=== PATIENT | female | born 1990 | race Caucasian/White ===

== ENCOUNTER 2016-12-18 23:30 | Observation (INO) | payer OTHER ==
[~2016-12-18] VITALS: Ht 167.6 cm; Wt 81.6 kg
[2016-12-19] VITALS: BP 110/53
[2016-12-19] MEDS ORDERED: LIDOCAINE 1% 500 MG/50 ML VIAL INJ SCH (00:45)
[2016-12-19] MEDS ORDERED: NALBUPHINE 10 MG/ML AMP IVP PRN (00:45)
[2016-12-19] MEDS ORDERED: cefTRIAXone 1,000 MG in LIDOCAINE 1% ***ER ONLY *** 2.1 ML IM SCH (00:45)
[2016-12-19] MEDS ORDERED: NALBUPHINE 10 MG/ML AMP IM PRN (00:55)
[2016-12-19] MEDS ORDERED: FERR-252 PO (05:11)
[2016-12-19] MEDS ORDERED: PREN-546 PO (05:11)
[2016-12-19] MEDS ORDERED: CALC500T2 PO (05:11)
== END 2016-12-19 01:10 | disposition left against medical advice (07) ==
LOC: MLD 23:30
PROVIDERS: ADMIT Obstetrics & Gynecology; ATTEND Obstetrics & Gynecology
DX: O26.899 Other specified pregnancy related conditions, unspecified trimester (principal); M54.5 Low back pain; Z3A.00 Weeks of gestation of pregnancy not specified
CPT/HCPCS: G0378; J0696; J2001

== ENCOUNTER 2022-11-22 05:59 | Emergency (ER) | payer OTHER ==
[~2022-11-22] VITALS: Ht 167.6 cm; Wt 108.9 kg
[2022-11-22 05:59] VITALS: BP 98/56; PULSE 81; RESP 16; TEMP 97.8; O2SAT 96
[~2022-11-22 05:59] MED LIST: CALC500T2 PO; FERR-252 PO; PREN-546 PO
[2022-11-22] MEDS ORDERED: NACL 0.9% 1,000 ML IV ONE ×2 (06:05→08:35)
[2022-11-22] MEDS ORDERED: ONDANSETRON 4 MG/2 ML VIAL IVP ONE (07:10)
[2022-11-22 10:31] VITALS: BP 127/59; PULSE 94; RESP 15; TEMP 96.9; O2SAT 98
[2022-11-22 11:24] LABS: AMPHETAMINE, URINE NEGATIVE ng/ml (NEG <=1000); BARBITURATE, URINE NEGATIVE ng/ml (NEG <=200); BENZODIAZEPINE, URINE NEGATIVE ng/mL (NEG <=200); CANNABINOID, URINE NEGATIVE ng/mL (NEG <=50); COCAINE, URINE NEGATIVE ng/mL (NEG <=300); OPIATE, URINE NEGATIVE ng/mL (NEG <=2000); PHENCYCLIDINE SCREEN,URINE NEGATIVE ng/mL (NEG <=25)
== END 2022-11-22 10:57 | disposition home or self-care (01) ==
LOC: MED 05:59
DX: F10.129 Alcohol abuse with intoxication, unspecified (principal); Z79.899 Other long term (current) drug therapy; Z88.8 Allergy status to other drugs, medicaments and biological substances
CPT/HCPCS: 80305; 96361; 96374; 99283; J2405; J7030